=== PATIENT | female | born 1960 | race Caucasian/White ===

== ENCOUNTER 2020-12-02 20:56 | Emergency (ER) | payer BC ==
[~2020-12-02] VITALS: Ht 162.6 cm; Wt 54.4 kg
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
[2020-12-02] MEDS ORDERED: MEROPENEM 1 G VIAL IV ONE (21:11)
[2020-12-02] MEDS ORDERED: IBUPROFEN 600 MG TABLET ONE (21:21)
[2020-12-02] MEDS ORDERED: TDAP [DIPH/PERTUSSIS/TET] 0.5 ML VIAL IM ONE ×2 (21:22→21:30)
[2020-12-02] MEDS ORDERED: IBUPROFEN 600 MG TABLET PO ONE (21:30)
[2020-12-02] MEDS ORDERED: ONDA4TAB5 PO (22:15)
[2020-12-02] MEDS ORDERED: IBUP-1957 PO (22:15)
[2020-12-02] MEDS ORDERED: HYDR-4303 PO (22:15)
[2020-12-02] MEDS ORDERED: HYDR-4209 PO (22:20)
--- NOTE | 2020-12-02 22:22 | NUR ---
TECH AT BEDSIDE FOR SPLINTING
--- NOTE | 2020-12-02 22:44 | NUR ---
Patient discharged to home in stable condition. Written and verbal after care instructions given. Patient verbalizes understanding of instruction.
[2020-12-02 22:45] VITALS: BP 123/78
== END 2020-12-02 22:45 | disposition home or self-care (01) ==
LOC: ER 21:00
DX: S52.572A Other intraarticular fracture of lower end of left radius, initial encounter for closed fracture (principal); S52.612A Displaced fracture of left ulna styloid process, initial encounter for closed fracture; S80.211A Abrasion, right knee, initial encounter; S60.511A Abrasion of right hand, initial encounter; Z23 Encounter for immunization; Z79.899 Other long term (current) drug therapy; V19.9XXA Pedal cyclist (driver) (passenger) injured in unspecified traffic accident, initial encounter; Y93.89 Activity, other specified; Y92.89 Other specified places as the place of occurrence of the external cause; Y99.8 Other external cause status
CPT/HCPCS: 29105; 73110; 90471; 90715; 99283; J7030; J2185